=== PATIENT | female | born 1940 ===

== ENCOUNTER 2017-06-17 12:44 | Emergency (ER) | payer MEDICAID ==
--- NOTE | 2017-06-17 14:17 | C.PDOC ---
History Of Present Illness 77 y/o female with PMHx of Osteoporosis and Arthritis presents to ED with complaints of right knee pain and swelling for 3 days. Patient states she has had similar symptoms in the past with needle aspiration and drainage. Denies recent injury or any other complaints at this time. Time Seen by Provider: 06/17/17 13:41 Chief Complaint (Nursing): Lower Extremity Problem/Injury History Per: Patient, Healthcare Applications Analyst History/Exam Limitations: no limitations Onset/Duration Of Symptoms: Days Current Symptoms Are (Timing): Still Present Past Medical History Reviewed: Historical Data, Nursing Documentation, Vital Signs Vital Signs: Last Vital Signs Temp 98.1 F 06/17/17 15:05 Pulse 80 06/17/17 15:05 Resp 16 06/17/17 15:05 BP 180/78 H 06/17/17 15:05 Pulse Ox 95 06/17/17 15:05 - Medical History PMH: Arthritis, Osteoporosis Surgical History: No Surg Hx Family History: States: No Known Family Hx - Social History Hx Alcohol Use: No Hx Substance Use: No Review Of Systems Constitutional: Negative for: Fever, Chills Musculoskeletal: Positive for: Leg Pain. Negative for: Back Pain Skin: Negative for: Rash Neurological: Negative for: Weakness, Numbness Physical Exam - Physical Exam Appears: Well, Non-toxic, No Acute Distress Skin: Warm, Dry, No Rash Head: Atraumatic, Normacephalic Eye(s): bilateral: Normal Inspection, EOMI Nose: Normal Oral Mucosa: Moist Neck: Normal ROM, Supple Chest: Symmetrical Cardiovascular: Rhythm Regular Respiratory: Normal Breath Sounds, No Accessory Muscle Use, No Rales, No Rhonchi , No Wheezing Gastrointestinal/Abdominal: Soft, No Tenderness, No Guarding, No Rebound Extremity: Tenderness (Diffuse), No Pedal Edema, Capillary Refill (<2 seconds), Other (+effusion to right knee. No erythema. No increase warmth) Extremity: Bilateral: Normal ROM Pulses: Left Dorsalis Pedis: Normal, Right Dorsalis Pedis: Normal Neurological/Psych: Oriented x3, Normal Motor, Normal Sensation ED Course And Treatment O2 Sat by Pulse Oximetry: 97 (RA) Pulse Ox Interpretation: Normal Progress Note: Toradol ordered. Jefferson wrap and knee brace applied by RN. Instructed to follow up with ortho in 1-2 days or return to ER if symptoms persist or worsen. Disposition - Disposition Referrals: [facility] [Outside] Alessandro Bennett MD [Staff Provider] - Disposition: HOME/ ROUTINE Disposition Time: 14:33 Condition: STABLE Additional Instructions: Dev un seguimiento con yadav mdico de cabecera en 1-2 dominguez. Regresar a Urgencias si los sntomas persisten o empeoran. 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 - Scribe Statement The provider has reviewed the documentation as recorded by the Scribbren Perry All medical record entries made by the Scribe were at my direction and personally dictated by me. I have reviewed the chart and agree that the record accurately reflects my personal performance of the history, physical exam, medical decision making, and the department course for this patient. I have also personally directed, reviewed, and agree with the discharge instructions and disposition.
--- NOTE | 2017-06-17 14:58 | RAD ---
PROCEDURE: Right knee dated 06/17/2017. Three views of the right knee performed. HISTORY: trauma COMPARISON: None. FINDINGS: BONES: No evidence of acute displaced fracture nor dislocation. The osseous structures intact. JOINTS: Tricompartmental degenerative osteoarthritis most notably affecting the medial compartment. There is marked medial joint space narrowing with marginal osteophyte formation arising from the medial tibial plateau. Additionally, there appears to be chondrocalcinosis within the lateral joint space no region and small osteophyte arising from the lateral tibial plateau. Posterior patellar osteophyte formation. JOINT EFFUSION: Medium size suprapatellar joint effusion present. OTHER FINDINGS: None. IMPRESSION: No acute fractures. DJD with medium-sized suprapatellar joint effusion.
[2017-06-17 15:06] VITALS: BP 180/78; PULSE 80; RESP 16; TEMP 98.1
[2017-06-17 15:39] VITALS: O2SAT 97
== END 2017-06-17 15:19 | disposition home or self-care (01) ==
LOC: C.ER 12:44
DX: M25.561 Pain in right knee (principal)
CPT/HCPCS: 73562; 96372; 99284; J1885

== ENCOUNTER 2018-07-22 08:03 | Emergency (ER) | payer MEDICAID ==
[2018-07-22 08:14] VITALS: BP 185/84; PULSE 71; RESP 18; O2SAT 96
--- NOTE | 2018-07-22 08:47 | C.PDOC ---
History Of Present Illness 78 y/o female presents to ED sent by PMD for evaluation of left inferior buttock pain for 2 weeks after she slipped and fell. Patient states she has been taking pain reliever with no improvement. Patient denies new injury, change in sensation, dysuria, hematuria, bowel/bladder incontinence or any other complaints at this time. Time Seen by Provider: 07/22/18 08:19 Chief Complaint (Nursing): Female Genitourinary History Per: Patient History/Exam Limitations: no limitations Onset/Duration Of Symptoms: Days Current Symptoms Are (Timing): Still Present Past Medical History Reviewed: Historical Data, Nursing Documentation, Vital Signs Vital Signs: Last Vital Signs Temp 98.5 F 07/22/18 08:09 Pulse 71 07/22/18 08:09 Resp 18 07/22/18 08:09 BP 185/84 H 07/22/18 08:09 Pulse Ox 96 07/22/18 08:09 - Medical History PMH: Arthritis, Osteoporosis Surgical History: No Surg Hx Family History: States: No Known Family Hx - Social History Hx Alcohol Use: No Hx Substance Use: No Review Of Systems Gastrointestinal: Negative for: Nausea, Vomiting, Abdominal Pain Musculoskeletal: Positive for: Back Pain Skin: Negative for: Rash, Bruising Neurological: Negative for: Weakness, Numbness Physical Exam - Physical Exam Appears: Non-toxic, No Acute Distress Skin: Warm, Dry, No Rash Head: Atraumatic, Normacephalic Eye(s): bilateral: Normal Inspection Oral Mucosa: Moist Neck: Normal ROM, Supple Cardiovascular: Rhythm Regular Respiratory: Normal Breath Sounds, No Rales, No Rhonchi, No Wheezing Gastrointestinal/Abdominal: Soft, No Tenderness, No Guarding, No Rebound Back: No CVA Tenderness, Other (mild tenderness to inferior left ramus, no bruising or swelling) Pelvic: Cervix Open Extremity: Normal ROM, Capillary Refill (<2 seconds) Neurological/Psych: Oriented x3, Normal Speech, Normal Motor, Normal Sensation ED Course And Treatment O2 Sat by Pulse Oximetry: 96 (RA) Pulse Ox Interpretation: Normal - Other Rad L hip/pelvis X-Ray: Interpreted by Me (no fx/disloc (focus L inferior ischium)) Medical Decision Making Medical Decision Making: buttock contusion, no fx from fall 2 wks ago Disposition Doctor Will See Patient In The: Office Counseled Patient/Family Regarding: Studies Performed, Diagnosis - Disposition Disposition: HOME/ ROUTINE Disposition Time: 09:12 Condition: GOOD Forms: [employer] (Luxembourger) - Clinical Impression Clinical Impression: Contusion of buttock - Scribe Statement The provider has reviewed the documentation as recorded by the Thea Perry All medical record entries made by the Darrellibbren were at my direction and personally dictated by me. I have reviewed the chart and agree that the record accurately reflects my personal performance of the history, physical exam, medical decision making, and the department course for this patient. I have also personally directed, reviewed, and agree with the discharge instructions and disposition.
[2018-07-22 09:21] VITALS: TEMP 98
--- NOTE | 2018-07-22 10:41 | RAD ---
Date of service: 07/22/2018 PROCEDURE: HISTORY: inferior ramus contusion, ? fx, normal gait COMPARISON: None TECHNIQUE: AP pelvis and frog's leg view. FINDINGS: No fracture or lytic lesion. No dislocation. L5-S1 and L4-5 facet hypertrophic arthrosis present. Bilateral hip arthrosis. Sacroiliac joints and pubic symphysis unremarkable. Moderate stool retention. No bowel obstruction appreciated. Well corticated calcifications and/or ossifications border the left gluteal soft tissues-possible injection granulomas and/or old osseous avulsions. IMPRESSION: No acute fracture or dislocation appreciated. Other findings as above.
== END 2018-07-22 09:20 | disposition home or self-care (01) ==
LOC: C.ER 08:03
DX: S30.0XXA Contusion of lower back and pelvis, initial encounter (principal); W01.0XXA Fall on same level from slipping, tripping and stumbling without subsequent striking against object, initial encounter